=== PATIENT | female | born 1970 | race Caucasian/White ===

== ENCOUNTER 2022-06-08 01:14 | Emergency (ER) | payer MEDICARE, MEDICAID ==
[2022-06-08] MEDS: Ketorolac 30 MG/ML SDV IM ONE (02:45)
[2022-06-08] MEDS: Lidocaine 5% 700 MG Patch TOP ONE ×2 (02:45)
== END 2022-06-08 04:00 | disposition other institution (70) ==
LOC: DL.ED 01:14
DX: S42.295A Other nondisplaced fracture of upper end of left humerus, initial encounter for closed fracture (principal); M54.50 Low back pain, unspecified; Z88.2 Allergy status to sulfonamides; Z88.5 Allergy status to narcotic agent; W22.09XA Striking against other stationary object, initial encounter
CPT/HCPCS: 72100; 73030; 96372; 99283; 99284; A9270; J1885

== ENCOUNTER 2022-06-09 08:17 | Emergency (ER) | payer MEDICARE, MEDICAID ==
[2022-06-09] MEDS ORDERED: Cyclobenzaprine 10 MG Tab PO ONE (08:35)
== END 2022-06-09 09:10 | disposition home or self-care (01) ==
LOC: DL.ED 08:17
DX: M62.830 Muscle spasm of back (principal); Z88.5 Allergy status to narcotic agent
CPT/HCPCS: 99284; A9270